=== PATIENT | female | born 1990 | race Caucasian/White ===

== ENCOUNTER 2019-03-19 09:57 | Emergency (ER) | payer OTHER ==
--- NOTE | 2019-03-19 10:59 | ER Document Report ---
ED Medical Screen (RME) - General Chief Complaint: Abscess Stated Complaint: ABSCESS Time Seen by Provider: 03/19/19 10:57 - HPI Notes: 03/19/19 10:58 Patient is a 28-year-old female with history of multiple Bartholin abscesses re quiring incision and drainage who presents complaining of swelling/pain to this area that she believes is another Bartholin abscess. No history of MRSA. Denies drug allergies. I have treated and performed a rapid initial assessment of this patient. A comprehensive ED assessment and evaluation of the patient, analysis of test results and completion of medical decision making process will be conducted by additional ED providers. PHYSICAL EXAMINATION: GENERAL: Well-appearing, well-nourished and in no acute distress. A&Ox4. Answers questions appropriately. - Related Data Allergies/Adverse Reactions: No Known Allergies Allergy (Unverified 03/19/19 10:55) Physical Exam - Vital signs Vitals: Temp Pulse Resp BP Pulse Ox 97.9 F 90 18 136/78 H 96 03/19/19 10:10 03/19/19 10:10 03/19/19 10:10 03/19/19 10:10 03/19/19 10:10 Course - Vital Signs Vital signs: Temp Pulse Resp BP Pulse Ox 97.9 F 90 18 136/78 H 96 03/19/19 10:10 03/19/19 10:10 03/19/19 10:10 03/19/19 10:10 03/19/19 10:10
[2019-03-19] MEDS ORDERED: LIDOCAINE 1% INJ-PF (10 MG/ML) 30 ML SDV INJ ONE (11:29)
[2019-03-19] MEDS ORDERED: MORPHINE SULFATE 10 MG/ML INJ IM ONE (11:29)
--- NOTE | 2019-03-19 11:35 | ER Document Report ---
ED General - General Chief Complaint: Abscess Stated Complaint: ABSCESS Time Seen by Provider: 03/19/19 10:57 Notes: 28-year-old female presents with right Bartholin abscess. Patient states she noticed the swelling a few days ago and started having pain yesterday. Patient states this is the fourth abscess on the right side and patient has seen her ENVIRONMENTAL ISSUES INSTRUCTOR who recommended having marsupialization done. Patient is visiting from out of town and states she is going to have the surgery scheduled as soon as she gets back. Patient denies fever or any other complaints. Patient denies ever having a Word catheter. TRAVEL OUTSIDE OF THE [place] IN LAST 30 DAYS: No - Related Data Allergies/Adverse Reactions: No Known Allergies Allergy (Unverified 03/19/19 10:55) Past Medical History - Social History Smoking Status: Current Every Day Smoker Chew tobacco use (# tins/day): No Frequency of alcohol use: None Drug Abuse: None Family History: None Patient has suicidal ideation: No Patient has homicidal ideation: No Review of Systems - Review of Systems Notes: Constitutional: Negative for fever. HENT: Negative for sore throat. Eyes: Negative for visual changes. Cardiovascular: Negative for chest pain. Respiratory: Negative for shortness of breath. Gastrointestinal: Negative for abdominal pain, vomiting or diarrhea. Genitourinary: Positive for Bartholin cyst abscess. Negative for dysuria. Musculoskeletal: Negative for back pain. Skin: Negative for rash. Neurological: Negative for headaches, weakness or numbness. 10 point ROS negative except as marked above and in HPI. Physical Exam - Vital signs Vitals: Temp Pulse Resp BP Pulse Ox 97.9 F 90 18 136/78 H 96 03/19/19 10:10 03/19/19 10:10 03/19/19 10:10 03/19/19 10:10 03/19/19 10:10 - Notes Notes: GENERAL: Well-appearing, well-nourished and in no acute distress. HEAD: Atraumatic, normocephalic. EYES: Extraocular movements intact, sclera anicteric, conjunctiva are normal. NECK: Normal range of motion, supple without lymphadenopathy or JVD. ABDOMEN: Soft, nontender. No guarding, no rebound. No masses appreciated. : Large Bartholin cyst abscess on right side. EXTREMITIES: Normal range of motion, no pitting or edema. No clubbing or cyanosis. NEUROLOGICAL: Cranial nerves II through XII grossly intact. Normal speech, normal gait. PSYCH: Normal mood, normal affect. SKIN: Warm, Dry, normal turgor, no rashes or lesions noted. Course - Re-evaluation Re-evalutation: 03/19/19 exam consistent with right Uriel cyst abscess. Patient is nontoxic, well-appearing. Patient has ENVIRONMENTAL ISSUES INSTRUCTOR who I&D her third abscess and recommended marsupialization. Patient is currently visiting from out of town and states she will schedule the surgery as soon as she gets back. Patient is afebrile appears well/nontoxic. Up-to-date consulted which recommends first- line antibiotic Bactrim 1 tablet twice daily for 7 days. Patient will also be referred back to her ENVIRONMENTAL ISSUES INSTRUCTOR. Patient will have I&D and agrees with plan of care. 03/19/19 13:07 I&D completed with improvement in pain. Pt given Bactrim script and follow up with home obgyn for marsupialization surgery. Strict return precautions given. Patient voices understanding and agrees with plan of care. - Vital Signs Vital signs: Temp Pulse Resp BP Pulse Ox 97.9 F 90 18 136/78 H 96 03/19/19 10:10 03/19/19 10:10 03/19/19 10:10 03/19/19 10:10 03/19/19 10:10 Procedures - Incision and Drainage Right Labia Type: Simple Anesthetic type: 1% Lidocaine mL's of anesthetic: 10 Blade size: 11 I&D procedure: Betadine prep applied, Iodoform packing placed Incision Method: Incision made by scalpel Amount/type of drainage: 50 cc/purulent bloody Discharge - Discharge Clinical Impression: Bartholin's gland abscess Condition: Stable Disposition: HOME, SELF-CARE Instructions: Abscess ([facility]), Post Incision and Drainage, Trimethoprim-Sulfa ([facility]) Additional Instructions: Please take Bactrim as prescribed. Please finish all doses unless we call you to change it based off your wound culture. Please follow-up with your ENVIRONMENTAL ISSUES INSTRUCTOR/surgeon for marsupialization. Return immediately to ER if you start having any worsening symptoms, including increased swelling increased drainage, fever, increased pain nausea/vomiting, abdominal pain, chest pain, shortness of breath, or any other symptoms that are concerning to you. Prescriptions: Sulfamethoxazole/Trimethoprim [Bactrim Ds Tablet] 1 tab PO BID #14 tablet
[2019-03-19] MEDS ORDERED: HYDROCODONE/ACETAMINOPHEN 5-325 MG (6 TAB/ER DISP) PO PRN (12:59)
[2019-03-19 13:17] VITALS: BP 117/72
== END 2019-03-19 13:19 | disposition home or self-care (01) ==
LOC: ER 09:57
PROC: 0U9L0ZZ Drainage of Vestibular Gland, Open Approach (ICD-10-PCS; principal; 2019-03-19)
DX: N75.1 Abscess of Bartholin's gland (principal); F17.200 Nicotine dependence, unspecified, uncomplicated
CPT/HCPCS: 99282; 96372; 87070; 87205; 87075; 87077; 56420; A6266; J2270